=== PATIENT | female | born 1990 | race Caucasian/White ===

== ENCOUNTER 2019-10-08 17:12 | Outpatient (CLI) | payer BC ==
[~2019-10-08] VITALS: Ht 170.2 cm; Wt 132.7 kg
[~2019-10-08 17:12] MED LIST: NO HOME MEDICATIONS
--- NOTE | 2019-10-08 17:20 | NUR ---
Patient ambulatory onto unit with report of decreased movement. Patient states she has only felt one kick this afternoon. Plan of care discussed, patient changes into gown. EFMs on, VS taken. Assessment completed. Patient also reports generalized swelling which she just had labs done at [facility] with last appointment. Denies contractions, vaginal bleeding, or leaking of fluid. Will monitor FHR and notify for orders.
[2019-10-08] MEDS ORDERED: PRENATAL VITAMI1 TA3 PO (17:26)
[2019-10-08 17:30] VITALS: BP 135/89; PULSE 86; TEMP 98.6
[2019-10-08 17:45] VITALS: BP 126/64; PULSE 79
[2019-10-08 18:00] VITALS: BP 122/71; PULSE 77
[2019-10-08 18:15] VITALS: BP 127/59; PULSE 84
--- NOTE | 2019-10-08 18:15 | NUR ---
Patient states she just felt another movement. EFMs off per orders.
--- NOTE | 2019-10-08 18:25 | NUR ---
Plan of care discussed with patient. Discharge instructions and return precautions reviewed with patient. Patient educated to call/return with any questions or concerns, including decreased movement, contractions, vaginal bleeding, or leaking of fluid. Instructed to follow up with at next scheduled OB appointment which is Monday, but to call with any concerns prior to appointment, including continued decreased movement. Questions answered. Verbalized understanding.
== END 2019-10-08 18:25 | disposition home or self-care (01) ==
LOC: LDRO 17:12 → LDR 17:20 → LDRO 18:25
DX: O36.8130 Decreased fetal movements, third trimester, not applicable or unspecified (principal); Z3A.38 38 weeks gestation of pregnancy
CPT/HCPCS: OP

== ENCOUNTER → 2021-03-25 | Outpatient (CLI) | payer BC ==
[~2021-03-25] MED LIST changes: +IBU600 MG PO; +MOTRIN 800800 MG/TAB PO; +OSCAL 500 TAB500 MG PO; +PERCOCET 325 MG1 TA2 PO; +PRENATAL VITAMI1 TA3 PO; +PRILOSEC 20MG20 MG PO; +PRILOSEC10 MG PO
== END ==
LOC: ZCOL.LAB 05:52
DX: Z20.822 Contact with and (suspected) exposure to COVID-19 (principal)